=== PATIENT | male | born 2005 | race Caucasian/White ===

== ENCOUNTER 2024-01-19 16:22 | Emergency (ER) | payer OTHER ==
[~2024-01-19] VITALS: Ht 175.3 cm; Wt 80.3 kg
[2024-01-19 19:17] VITALS: BP 134/79; TEMP 98.1; O2SAT 96
== END 2024-01-19 19:19 | disposition home or self-care (01) ==
LOC: M ED 16:22
DX: S62.232A Other displaced fracture of base of first metacarpal bone, left hand, initial encounter for closed fracture (principal); Y92.9 Unspecified place or not applicable; Y93.9 Activity, unspecified; Y99.0 Civilian activity done for income or pay; W23.0XXA Caught, crushed, jammed, or pinched between moving objects, initial encounter

== ENCOUNTER → 2024-01-21 | Outpatient (CLI) | payer OTHER | LOC: M RAD 15:18 | PROVIDERS: ATTEND Orthopaedic Surgery Hand Surgery | DX: M79.645 Pain in left finger(s) (principal) ==

== ENCOUNTER 2024-02-05 07:20 | Day surgery (SDC) | payer OTHER ==
[~2024-02-05] VITALS: Ht 175.3 cm; Wt 79.6 kg
[2024-02-05] MEDS ORDERED: fentaNYL 100 MCG/2 ML INJECTION As Ordered ONE (09:32)
[2024-02-05] MEDS ORDERED: propofoL 200 MG/20 ML VIAL As Ordered ONE (09:32)
[2024-02-05] MEDS ORDERED: MIDAZOLAM INJ 2MG/2ML VIAL As Ordered ONE (09:32)
[2024-02-05] MEDS ORDERED: LIDOCAINE 2% 100MG/5ML SDV (FOR ANES.) As Ordered ONE (09:32)
[2024-02-05] MEDS ORDERED: ROCURONIUM BROMIDE 50MG/5ML VIAL As Ordered ONE (09:33)
[2024-02-05] MEDS ORDERED: LR 1,000 ML IV SCH (10:00)
[2024-02-05] MEDS: ceFAZolin SOD 2 GM in IV 1 EA IV ONE (10:10)
[2024-02-05] MEDS: ceFAZolin 2 GM/D5W 50 ML IV BAG As Ordered ONE (10:36)
[2024-02-05] MEDS: BACITRACIN OINTMENT 30GM TUBE As Ordered ONE (12:05)
[2024-02-05] MEDS ORDERED: ONDANSETRON 4MG 2ML VIAL IV PRN (12:15)
[2024-02-05] MEDS ORDERED: PERC5TAB12 PO (12:43)
[2024-02-05] MEDS: oxyCODONE 5MG TAB PO PRN (13:06)
[2024-02-05] MEDS: fentaNYL 100 MCG/2 ML INJECTION IV PRN (13:31)
[2024-02-05 14:05] VITALS: BP 131/85; TEMP 97.9; O2SAT 98
== END 2024-02-05 15:00 | disposition home or self-care (01) ==
LOC: M SDC 07:20
PROVIDERS: ATTEND Orthopaedic Surgery Hand Surgery
DX: S62.222A Displaced Rolando's fracture, left hand, initial encounter for closed fracture (principal); X58.XXXA Exposure to other specified factors, initial encounter; Y92.9 Unspecified place or not applicable; Y93.9 Activity, unspecified; Y99.9 Unspecified external cause status
CPT/HCPCS: 26665; 76000; C1713; J0665; J0690; J2250; J3010

== ENCOUNTER → 2024-02-16 | Outpatient (CLI) | payer OTHER ==
[~2024-02-16] MED LIST: PERC5TAB12 PO
== END ==
LOC: M SOG 07:50
PROVIDERS: ATTEND Physician Assistant
DX: S62.222A Displaced Rolando's fracture, left hand, initial encounter for closed fracture (principal); W18.30XA Fall on same level, unspecified, initial encounter; Y92.009 Unspecified place in unspecified non-institutional (private) residence as the place of occurrence of the external cause

== ENCOUNTER → 2024-03-30 | Outpatient (CLI) | payer OTHER | LOC: M SOG 07:55 | PROVIDERS: ATTEND Physician Assistant | DX: S62.222A Displaced Rolando's fracture, left hand, initial encounter for closed fracture (principal); S62.22 Rolando's fracture; W18.30XA Fall on same level, unspecified, initial encounter; Y92.009 Unspecified place in unspecified non-institutional (private) residence as the place of occurrence of the external cause ==

== ENCOUNTER → 2024-05-03 | Outpatient (CLI) | payer OTHER | LOC: M SOG 07:56 | PROVIDERS: ATTEND Physician Assistant | DX: S62.222A Displaced Rolando's fracture, left hand, initial encounter for closed fracture (principal); S62.22 Rolando's fracture; W18.30XD Fall on same level, unspecified, subsequent encounter; Y92.009 Unspecified place in unspecified non-institutional (private) residence as the place of occurrence of the external cause ==

== ENCOUNTER 2024-08-08 17:42 | Emergency (ER) | payer OTHER ==
[2024-08-07] MEDS: CEPHALEXIN 500 MG CAP PO ONE (23:45)
[~2024-08-08] VITALS: Ht 175.3 cm; Wt 171.0 kg
[2024-08-08] MEDS: LIDOCAINE 2% MDV 20ML VIAL SC ONE (23:56)
[2024-08-09 00:41] VITALS: BP 123/74; TEMP 97.6; O2SAT 98
[2024-08-09] MEDS ORDERED: CEPH500C PO (00:45)
== END 2024-08-09 00:55 | disposition home or self-care (01) ==
LOC: M ED 17:42
DX: S61.211A Laceration without foreign body of left index finger without damage to nail, initial encounter (principal); Y92.019 Unspecified place in single-family (private) house as the place of occurrence of the external cause; Y93.9 Activity, unspecified; Y99.9 Unspecified external cause status; Z79.2 Long term (current) use of antibiotics

== ENCOUNTER 2025-01-26 15:10 | Emergency (ER) | payer OTHER ==
[~2025-01-26] VITALS: Ht 175.3 cm; Wt 90.5 kg
[~2025-01-26 15:10] MED LIST changes: +CEPH500C PO
[2025-01-26 15:54] LABS: BASO # 0.0 10^3/uL (0.0-0.2); BASO % 0.3 % (0.0-1.0); EOS # 0.2 10^3/uL (0.0-0.5); EOS % 1.9 % (0.0-3.0); LYMPH # 2.6 10^3/uL (1.5-5.0); LYMPH % 29.3 % (24.0-44.0); MONO # 1.1 10^3/uL (0.0-0.8); MONO % 12.9 % (2.0-8.0); NEUTROPHILS # 4.8 10^3/uL (1.5-8.5); NEUTROPHILS % 55.3 % (36.0-66.0); PLATELET COUNT, AUTOMATED 291 10^3/uL (150-450)
[2025-01-26 16:24] LABS: ALT/SGPT 32 U/L (7.0-40); AST/SGOT 32 U/L (<34); CALCIUM LEVEL 10.1 MG/DL (8.5-10.1); CARBON DIOXIDE LEVEL 28 MMOL/L (20-31); CHLORIDE LEVEL 105 MMOL/L (98-107); CREATININE FOR GFR 1.06 MG/DL (0.70-1.30); GLOMERULAR FILTRATION RATE > 90.0 (>60); POTASSIUM SERUM 4.3 MMOL/L (3.5-5.1); SODIUM LEVEL 144 MMOL/L (136-145)
[2025-01-26 16:53] VITALS: BP 135/82; TEMP 98.3; O2SAT 100
== END 2025-01-26 16:58 | disposition home or self-care (01) ==
LOC: M ED 15:10
DX: R11.10 Vomiting, unspecified (principal)

== ENCOUNTER 2025-03-14 08:54 | Emergency (ER) | payer OTHER ==
[~2025-03-14] VITALS: Ht 175.3 cm; Wt 89.1 kg
[2025-03-14 12:50] LABS: BASO # 0.0 10^3/uL (0.0-0.2); BASO % 0.2 % (0.0-1.0); EOS # 0.1 10^3/uL (0.0-0.5); EOS % 1.0 % (0.0-3.0); LYMPH # 2.6 10^3/uL (1.5-5.0); LYMPH % 19.5 % (24.0-44.0); MONO # 2.3 10^3/uL (0.0-0.8); MONO % 17.0 % (2.0-8.0); NEUTROPHILS # 8.1 10^3/uL (1.5-8.5); NEUTROPHILS % 61.4 % (36.0-66.0); PLATELET COUNT, AUTOMATED 350 10^3/uL (150-450)
[2025-03-14 14:05] LABS: ALT/SGPT 29 U/L (7.0-40); AST/SGOT 52 U/L (<34); C REACTIVE PROTEIN QUANTITATIV 10.49 MG/DL (<1.0); CALCIUM LEVEL 9.9 MG/DL (8.5-10.1); CARBON DIOXIDE LEVEL 29 MMOL/L (20-31); CHLORIDE LEVEL 98 MMOL/L (98-107); CREATININE FOR GFR 0.90 MG/DL (0.70-1.30); GLOMERULAR FILTRATION RATE > 90.0 (>60); POTASSIUM SERUM 5.6 MMOL/L (3.5-5.1); RHEUMATOID FACTOR QUANT < 3.5 IU/ML (<14); SODIUM LEVEL 137 MMOL/L (136-145)
[2025-03-14] MEDS: KETOROLAC 30 MG/ML 1 ML VIAL IV ONE (14:38)
[2025-03-14 15:16] VITALS: TEMP 96.8; O2SAT 96
[2025-03-14] MEDS ORDERED: PRED10TA2 PO (15:17)
[2025-03-14] MEDS ORDERED: DOXY-441 PO (15:17)
[2025-03-14 15:24] VITALS: BP 132/93
== END 2025-03-14 15:28 | disposition home or self-care (01) ==
LOC: M ED 08:54
DX: M06.4 Inflammatory polyarthropathy (principal); Z79.2 Long term (current) use of antibiotics; Z79.52 Long term (current) use of systemic steroids
CPT/HCPCS: 80048; 80076; 84132; 84550; 85025; 85652; 86038; 86140; 86431; 86618; 86780; 87040; 96374; 99284; J1885